=== PATIENT | male | born 1950 | race Two or more races ===

== ENCOUNTER 2018-12-05 07:22 | Outpatient (CLI) | payer OTHER | END 2018-12-05 08:08 | disposition home or self-care (01) | LOC: LAB 07:22 | DX: I10 Essential (primary) hypertension (principal); E11.9 Type 2 diabetes mellitus without complications; E03.8 Other specified hypothyroidism; E78.2 Mixed hyperlipidemia; K92.1 Melena; D64.0 Hereditary sideroblastic anemia; N40.0 Benign prostatic hyperplasia without lower urinary tract symptoms ==